=== PATIENT | female | born 1945 | race African-American/Black ===

== ENCOUNTER 2020-12-26 03:39 | Emergency (ER) | payer MEDICARE ==
[~2020-12-26] VITALS: Ht 165.1 cm; Wt 54.0 kg
[2020-12-26] MEDS ORDERED: MORPHINE SULFATE 4 MG/ML CPJ (NOT FOR IM USE) IV STA (04:08)
[2020-12-26 04:29] LABS: HEMATOCRIT. 25.2 % (36.0-48.0); HEMOGLOBIN. 8.1 g/dL (12.0-16.0); MEAN PLATELET VOLUME 6.8 fl (7.4-10.4); PLATELET 326 x1000/uL (130-400); RED BLOOD CELL COUNT 2.71 mill/uL (4.2-5.4); RED CELL DISTRIBUTION WIDTH 14.1 % (11.6-14.6)
[2020-12-26 04:33] LABS: CLARITY URINE TURBID (CLEAR); COLOR URINE YELLOW (YELLOW); KETONES URINE TRACE (NEGATIVE); LEUKOCYTE ESTERASE URINE 2+ (NEGATIVE); NITRITE URINE POSITIVE (NEGATIVE); OCCULT BLOOD URINE 1+ (NEGATIVE); PROTEIN URINE 1+ (NEGATIVE); SPECIFIC GRAVITY URINE 1.015 (1.005-1.030)
[2020-12-26 04:39] LABS: CHLORIDE 105 mEq/L (98-107)
[2020-12-26 04:42] LABS: PROTHROMBIN TIME 10.8 sec (9.6-11.0)
[2020-12-26] MEDS ORDERED: CEFTRIAXONE 1 G PREMIX 50 ML IV ONE (05:45)
[2020-12-26 05:54] LABS: PLATELET ESTIMATE NORMAL
[2020-12-26] MEDS ORDERED: IOHEXOL-350 100 ML BOTTLE ONE (06:16)
[2020-12-26] MEDS ORDERED: ESMOLOL 2500MG PREMIX 250 ML IV ONE ×3 (06:45→13:15)
[2020-12-26 09:38] LABS: HEMATOCRIT. 23.5 % (36.0-48.0); HEMOGLOBIN. 7.9 g/dL (12.0-16.0); MEAN CORPUSCULAR HEMOGLOBIN 31.2 pg (28.0-32.0); MEAN CORPUSCULAR VOLUME 92.4 fL (81.0-99.0); MEAN PLATELET VOLUME 7.4 fl (7.4-10.4); PLATELET 300 x1000/uL (130-400); RED BLOOD CELL COUNT 2.55 mill/uL (4.2-5.4); RED CELL DISTRIBUTION WIDTH 13.9 % (11.6-14.6)
[2020-12-26 10:41] LABS: NUCLEATED RED BLOOD CELLS 1 /100 WBC; PLATELET ESTIMATE NORMAL
[2020-12-26] MEDS ORDERED: ESMOLOL 2500MG PREMIX 250 ML IV NR (13:15)
[2020-12-26 13:30] VITALS: BP 142/89
== END 2020-12-26 15:50 | disposition short-term general hospital (02) ==
LOC: ER 03:39
DX: I72.3 Aneurysm of iliac artery (principal); I77.2 Rupture of artery; N39.0 Urinary tract infection, site not specified; I10 Essential (primary) hypertension; Z20.822 Contact with and (suspected) exposure to COVID-19
CPT/HCPCS: 36415; 71045; 71275; 74174; 76937; 80053; 81003; 82962; 83690; 84484; 85025; 85610; 86850; 86900; 86901; 87077; 87086; 87186; 87426; 93005; 93922; 96374; 96376; 99291; C1725; J0696; J3490; Q9967